=== PATIENT | female | born 1985 | race Caucasian/White ===

== ENCOUNTER → 2016-11-20 | Outpatient (CLI) | payer OTHER ==
--- NOTE | 2016-11-20 14:57 | DIAGNOSTIC IMAGING REPORT ---
MRI OF THE CERVICAL SPINE WITHOUT CONTRAST, FLEXION AND EXTENSION STUDY WITH CSF FLOW CLINICAL HISTORY: Headaches. COMPARISON STUDY: No previous studies for comparison. TECHNIQUE: Utilizing a 1.5 Viky magnet and dedicated coil, sagittal and axial unenhanced imaging of the cervical spine was performed in the flexion, extension and neutral positions with CSF flow analysis. FINDINGS: Alignment of the cervical spine is anatomic. Vertebral body heights are maintained. There is no marrow replacement. No intracanalicular mass or fluid collection is present. There is minimal cerebellar tonsillar ectopia. Specifically, there is 3 mm of ectopia of the left cerebellar tonsil. There is no evidence for instability during flexion or extension. There is normal anterior and posterior CSF flow in the neutral, flexion and extension positions. The central canal and neural foramen are patent. Minimal multilevel disc bulges are present. Visualized portions of the posterior fossa are unremarkable. Cervical signal is normal. There is no syrinx. Paravertebral soft tissues are unremarkable. IMPRESSION: 1. Minimal cerebellar tonsillar ectopia. The findings do not meet MRI criteria for a Chiari I malformation. Normal CSF flow in the neutral, flexion and extension positions. 2. Normal cervical cord signal and caliber. No syrinx. 3. Patent central canal and neural foramen. No disc herniations. Electronically signed by: Brad Salinas M.D. 11/20/2016 2:56 PM Dictated Date/Time: 11/20/2016 1:48 PM
== END | disposition home or self-care (01) ==
LOC: C.MRIBC 11:10
PROVIDERS: ATTEND Neurological Surgery
DX: D32.9 Benign neoplasm of meninges, unspecified (principal)

== ENCOUNTER → 2017-11-17 | Outpatient (CLI) | payer OTHER ==
--- NOTE | 2017-11-17 13:09 | DIAGNOSTIC IMAGING REPORT ---
MRI OF THE CERVICAL SPINE IN THE NEUTRAL/FLEXION/EXTENSION POSITION WITHOUT IV CONTRAST; CSF FLOW STUDY CLINICAL HISTORY: Chronic headaches. History of Chiari decompression surgery. COMPARISON STUDY: MRI of the cervical spine and CSF flow study dated 11/20/2016. TECHNIQUE: MRI of the cervical spine is performed utilizing T2-weighted sequences in the axial and sagittal planes in the neutral, flexion, and extension positions. IV contrast was not administered for this examination. CSF flow study was performed. FINDINGS: Cervical spine: Vertebral body height and alignment are maintained throughout the cervical spine. There is straightening of the cervical lordosis. The atlantodental articulation appears maintained. The spinous processes are intact. Normal marrow signal intensity is preserved throughout. No destructive bony process is identified. There is no inducible bony subluxation on the flexion/extension views. Intervertebral discs: Normal in height and signal intensity. Spinal cord: The cervical spinal cord is normal in morphology and signal intensity. There is no disc herniation, central canal stenosis, or significant neural foraminal stenosis seen throughout the cervical spine. CSF flow: There is normal anterior and posterior flow in the flexion position. There is normal anterior CSF flow in the neutral and extension positions, with diminished posterior flow in the neutral and extension positions. Brain parenchyma: The visualized brain parenchyma is normal in appearance. The cerebellar tonsils are normal in configuration. Findings indication previous suboccipital craniectomy. IMPRESSION: 1. There is no disc herniation, central canal stenosis, or neural foraminal narrowing seen throughout the cervical spine. 2. There is normal anterior and posterior spinal CSF flow in the flexion position. 3. There is normal CSF anterior flow in the neutral and extension positions with diminished posterior CSF flow. Dictated: 11/17/2017 11:43 AM Transcribed: 11/17/2017 1:08 PM Saeed Electronically signed by: Clint Grimaldo M.D. 11/17/2017 1:13 PM Dictated Date/Time: 11/17/2017 11:43 AM
== END | disposition home or self-care (01) ==
LOC: C.MRIBC 09:27
PROVIDERS: ATTEND Neurological Surgery
DX: R03.0 Elevated blood-pressure reading, without diagnosis of hypertension (principal); R51 Headache